=== PATIENT | male | born 1980 | race Two or more races ===

== ENCOUNTER 2022-06-27 11:42 | Emergency (ER) | payer BC ==
[~2022-06-27] VITALS: Ht 188 cm; Wt 118.0 kg
[2022-06-27] MEDS ORDERED: hydrALAZINE HCL 20 MG/ML VL IV ONE ×3 (12:30→14:00)
[2022-06-27 14:02] LABS: Potassium 3.7 mmol/L (3.5-5.1)
[2022-06-27 14:09] LABS: Albumin 4.4 g/dL (3.4-5.0); Bilirubin, Total 0.7 mg/dL (0.2-1.0); Calcium 8.9 mg/dL (8.5-10.1); Total Protein 8.1 g/dL (6.4-8.2)
[2022-06-27 14:30] LABS: Basophils # (auto) 0 10 ^3/uL (0-0.2); Basophils % (auto) 0.6 % (0.0-2.0); Eosinophils # (auto) 0.2 10 ^3/uL (0-0.8); Eosinophils % (auto) 1.8 % (0.0-7.0); Lymphocytes # (auto) 2.4 10 ^3/uL (0.4-5.4); Lymphocytes % (auto) 27.5 % (10.0-50.0); Mean Corpuscular Hemoglobin 30.3 pg (28.0-32.0); Mean Corpuscular Hgb Conc. 36.4 g/dL (32.0-36.0); Mean Corpuscular Volume 83.2 fL (80.0-100.0); Monocytes # (auto) 0.4 10 ^3/uL (0-1.3); Monocytes % (auto) 4.9 % (0.0-12.0); Neutrophils # (auto) 5.6 10 ^3/uL (1.6-8.6); Neutrophils % (auto) 65.2 % (37.0-80.0); Nucleated Red Blood Cells % 0.3 %; Red Blood Cells 5.29 10^6/uL (4.5-5.90); Red Cell Distribution Width 13.6 % (11.8-14.3); White Blood Cell 8.6 10^3/uL (4.4-10.8)
[2022-06-27] MEDS ORDERED: cloNIDine HCL 0.1 MG TAB PO ONE (16:45)
[2022-06-27] MEDS ORDERED: AMLO-496 PO (17:09)
[2022-06-27 17:18] VITALS: BP 188/129
== END 2022-06-27 17:23 | disposition home or self-care (01) ==
LOC: ER 11:42
DX: T59.91XA Toxic effect of unspecified gases, fumes and vapors, accidental (unintentional), initial encounter (principal); R06.02 Shortness of breath; I16.1 Hypertensive emergency; I10 Essential (primary) hypertension; Y92.89 Other specified places as the place of occurrence of the external cause
CPT/HCPCS: 36415; 36600; 71045; 80053; 82805; 84484; 85025; 96374; 99285; J0360

== ENCOUNTER → 2023-07-10 | Outpatient (CLI) | payer BC ==
[~2023-07-10] MED LIST: AMLO1TAB23 PO
[2023-07-10 11:53] LABS: Basophils # (auto) 0.1 10 ^3/uL (0-0.2); Basophils % (auto) 0.7 % (0.0-2.0); Eosinophils # (auto) 0.2 10 ^3/uL (0-0.8); Eosinophils % (auto) 2.3 % (0.0-7.0); Hematocrit 45.1 % (41.0-53.0); Hemoglobin 15.2 g/dL (13.5-17.5); Lymphocytes # (auto) 2.7 10 ^3/uL (0.4-5.4); Lymphocytes % (auto) 30.5 % (10.0-50.0); Mean Corpuscular Hemoglobin 28.4 pg (28.0-32.0); Mean Corpuscular Hgb Conc. 33.8 g/dL (32.0-36.0); Mean Corpuscular Volume 84.1 fL (80.0-100.0); Monocytes # (auto) 0.4 10 ^3/uL (0-1.3); Monocytes % (auto) 4.6 % (0.0-12.0); Neutrophils # (auto) 5.4 10 ^3/uL (1.6-8.6); Neutrophils % (auto) 61.9 % (37.0-80.0); Nucleated Red Blood Cells % 0.2 %; Red Blood Cells 5.37 10^6/uL (4.5-5.90); Red Cell Distribution Width 14.1 % (11.8-14.3); White Blood Cell 8.8 10^3/uL (4.4-10.8)
[2023-07-10 12:05] LABS: Urine Bacteria FEW /hpf (None Seen); Urine Blood Negative /uL (Negative); Urine Clarity Clear (Clear); Urine Color Straw (Yellow); Urine Protein, UAD Negative (Negative); Urine Specific Gravity 1.012 (1.001-1.035); Urine Urobilinogen Normal (Negative); Urine WBC 1 /hpf (0 - 3)
[2023-07-10 12:41] LABS: Alanine Aminotransferase 47 U/L (7-40); Albumin 4.6 g/dL (3.2-4.8); Alkaline Phosphatase 73 U/L (46-116); Anion Gap 5 (5-15); Aspartate Aminotransferase 30 U/L (13-40); Bilirubin, Total 0.7 mg/dL (0.2-1.0); Blood Urea Nitrogen 12 mg/dL (9-23); Calcium 9.4 mg/dL (8.5-10.1); Carbon Dioxide 26 mmol/L (20-30); Chloride 107 mmol/L (98-107); Cholesterol 148 mg/dL (< 200); Glucose 95 mg/dL (74-106); HDL Cholesterol 39 mg/dL (40-59); LDL Cholesterol 97 mg/dL (< 100); Potassium 4.5 mmol/L (3.5-5.1); Sodium 138 mmol/L (136-145); Total Protein 7.6 g/dL (5.7-8.2); Triglycerides 103 mg/dL (< 150)
== END | disposition home or self-care (01) ==
LOC: LAB 11:28
PROVIDERS: ATTEND Nurse Practitioner
DX: I10 Essential (primary) hypertension (principal); E78.5 Hyperlipidemia, unspecified
CPT/HCPCS: 36415; 80053; 80061; 81001; 83036; 84443; 85025

== ENCOUNTER 2024-12-10 09:32 | Inpatient (IN) | payer BC ==
[2024-12-10] VITALS (10 sets, daily range): BP systolic 110–141; BP diastolic 73–85; PULSE 75–86; RESP 18–29; TEMP 98.6; O2SAT 91–98
[~2024-12-10] VITALS: Ht 188 cm; Wt 127.0 kg
[2024-12-10] MEDS: LABETALOL HCL 20 MG/4 ML VL IV ONE ×3 (09:59→11:44)
--- NOTE | 2024-12-10 10:04 | ED.PDOC ---
History of Present Illness HPI Comments HPI: This is a 44 year old male presenting to the ED with chief complaint of HTN. Patient reports that while at work today, he had his blood pressure checked out of curiosity, but was noted to have a BP of 218/129. Patient relays that his has history of HTN and used to be on amlodipine, but has not taken it for the last 6 months. Patient denies any symptoms at this time. Initial Vitals BP: 218/129 HR: 83 RR: 18 O2: 97% Temp: 98.3F Past Medical History: HTN Past Surgical History: None Social History: Denies ETOH, smoking, and drug use. Medications: Amlodipine, last used 6 months ago Allergies: NKDA HPI: Poor Historian. REVIEW OF SYSTEMS: CONSTITUTIONAL: Denies acute: fever, diaphoresis, chills, generalized weakness. HEAD: Denies acute: headache, photophobia Eyes: Denies acute: Double vision, vision loss, eye pain, eye discharge. EARS: Denies acute: tinnitus, hearing loss, ear discharge, ear pain, THROAT: Denies acute: sore throat, swelling, difficulty swallowing , pain with swallowing, change in voice. NECK: Denies acute: neck pain, neck swelling, stiff neck. HEART: Denies acute : chest pain, palpitations, LUNGS: Denies acute: SOB, wheezing, cough, hemoptysis ABDOMEN: Denies acute: abdominal pain, Nausea, Vomiting, diarrhea, melena , hematemesis, hematochezia SKIN: Denies acute: rash, redness, lesions, itchiness. EXTREMITIES: Denies acute: calf pain, numbness, tingling, weakness, denies pain in extremity. Denies acute: Low back pain. Neuro: Denies acute: focal neurological deficit, motor or sensory focal neurological deficit, tremors, seizure like activity, confusion, dizziness, change in mental status, loss of bowel or bladder function, cauda equina like symptoms. : Denies acute: dysuria, hematuria, flank pain, increase in urinary frequency. PSYCH: Denies acute: hallucination, suicidal ideation, homicidal ideation. PHYSICAL EXAM: General: ----no----acute distress, awake and alert. Head: normocephalic, atraumatic. Neck: supple, trachea is midline, no swelling. Throat: Normal phonation. Eyes:, no erythema, no purulent discharge, no proptosis, no icterus. Heart: regular rate, regular rhythm, no significant murmur appreciated. Lungs: no apparent respiratory distress, Able to speak in full sentences. No wheezing, no rhonchi, no crackles. No stridors Clear to auscultation bilaterally. Abdomen: non tender to palpation, non distended, soft, no guarding, no rebound, + bowel sounds. Neuro: Awake, Alert, oriented to name, self, situation, follows commands GCS=15. Speech is normal. Skin: no petechia, no purpura, no cyanosis, non-pale, not jaundice. Lower extremities: --no - Pitting edema no deformity, no focal swelling, no calf TTP. Makes eye contact. moves all four extremities. Face: no apparent facial droop. ED COURSE: DISCLAIMER: This medical document was created using an electronic medical record system with voice recognition software and computerized dictation system. Although this document has been carefully reviewed, there might still be some phonetic and typographical errors. Occasional wrong-word or "sound-alike" substitutions may have occurred due to the inherent limitations of voice recognition software. These areas are purely typographical due to imperfections of the software programs and do not reflect any compromise in the patient's medical care. Please read the chart carefully and recognize, using context, where these substitutions have occurred. Chief Complaint: High Blood Pressure Time Seen by MD: 10:02 Primary Care Provider: MACEYIES Reviewed Notes: Medications, Allergies Allergies: Coded Allergies: NO KNOWN ALLERGIES (Unverified , 06/27/22) Home Meds Active Scripts Amlodipine Besylate (Amlodipine Besylate) 10 Mg Tab, 1 TAB PO DAILY for 30 Days, #30 TAB 5 Refills Prov:CONCHITA HERNANDEZ 06/27/22 Information Source: Patient Mode of Arrival: Ambulatory Was a procedure done? Was a procedure done?: No X-Ray, Labs, Meds, VS Vital Signs Date Time Temp Pulse Resp B/P (MAP) Pulse Ox O2 Delivery O2 Flow Rate FiO2 12/10/24 10:52 79 195/119 12/10/24 10:51 79 195/116 12/10/24 10:00 84 18 204/130 (154) 92 12/10/24 10:00 84 18 92 Room Air* 0 21 12/10/24 09:59 82 213/130 12/10/24 09:33 98.3 83 18 218/129 97 98.3 Lab Test 12/10/24 10:02 Range/Units White Blood Count 8.1 4.4-10.8 10^3/uL Red Blood Count 5.05 4.5-5.90 10^6/uL Hemoglobin 15.0 13.5-17.5 g/dL Hematocrit 42.0 41.0-53.0 % Mean Corpuscular Volume 83.1 80.0-100.0 fL Mean Corpuscular Hemoglobin 29.7 28.0-32.0 pg Mean Corpuscular Hemoglobin Concent 35.7 32.0-36.0 g/dL Red Cell Distribution Width 13.9 11.8-14.3 % Platelet Count 253 140-450 10^3/uL Mean Platelet Volume 8.8 6.9-10.8 fL Neutrophils (%) (Auto) 62.7 37.0-80.0 % Lymphocytes (%) (Auto) 27.4 10.0-50.0 % Monocytes (%) (Auto) 6.2 0.0-12.0 % Eosinophils (%) (Auto) 3.1 0.0-7.0 % Basophils (%) (Auto) 0.6 0.0-2.0 % Neutrophils # (Auto) 5.1 1.6-8.6 10 ^3/uL Lymphocytes # (Auto) 2.2 0.4-5.4 10 ^3/uL Monocytes # (Auto) 0.5 0-1.3 10 ^3/uL Eosinophils # (Auto) 0.3 0-0.8 10 ^3/uL Basophils # (Auto) 0 0-0.2 10 ^3/uL Nucleated Red Blood Cells 0.1 % Sodium Level 140 136-145 mmol/L Potassium Level 3.6 3.5-5.1 mmol/L Chloride Level 104 98-107 mmol/L Carbon Dioxide Level 25 20-31 mmol/L Anion Gap 11 5-15 Blood Urea Nitrogen 12 9-23 mg/dL Creatinine 1.43 H 0.700-1.30 mg/dL Glomerular Filtration Rate Calc 61 >90 mL/min BUN/Creatinine Ratio 8.4 L 10.0-20.0 Serum Glucose 98 74-106 mg/dL Lactic Acid Level 1.2 0.4-2.0 mmol/L Calcium Level 9.0 8.7-10.4 mg/dL Total Bilirubin 0.8 0.2-1.0 mg/dL Aspartate Amino Transferase (AST) 32 13-40 U/L Alanine Aminotransferase (ALT) 61 H 7-40 U/L Alkaline Phosphatase 75 46-116 U/L Troponin I High Sensitivity 7 </=54 ng/L Total Protein 7.4 5.7-8.2 g/dL Albumin 4.6 3.2-4.8 g/dL Current Medications Medications (Trade) Dose Ordered Sig/Bobbi Route Start Time Stop Time Status Last Admin Labetalol HCl (Labetalol HCl) 10 mg ONCE ONCE IV 12/10/24 10:00 12/10/24 10:01 DC 12/10/24 09:59 Labetalol HCl (Labetalol HCl) 10 mg ONCE ONCE IV 12/10/24 10:30 12/10/24 10:31 DC 12/10/24 10:52 [place] [id number] Ph: [phone] DIAGNOSTIC IMAGING Diagnostic Imaging Report : [id number] Signed PATIENT: EVA FRAGA ACCT: [id number] UNIT: [id number] : 1980 LOC: ER ROOM / BED: / AGE / SEX: 44 / M ADM STATUS: REG ER SERVICE [id number] ORDERING PHYSICIAN: MARY ANGELES DO PROCEDURE(s): HWOCT - HEAD WITHOUT CONTRAST REASON: HTN ORDER NUMBER(s): [id number], ACCESSION NUMBER(s): [id number] EXAM: CT HEAD WITHOUT CONTRAST INDICATION: HTN TECHNIQUE: CT of the head without intravenous contrast. Coronal and sagittal reformatted images are submitted. Radiation Dose : 1. Head: CT Dose: CTDI volume is 67.79 mGy. Dose-length product is 1181.4 mGy*cm The dose indicators for CT are the volume Computed Tomography (CT) Dose Index (CTDIvol) and the Dose Length Product (DLP), and are measured in units of mGy and mGy-cm, respectively. These indicators are not patient dose, but values generated from the CT scanner acquisition factors. The report includes radiation exposure data for exposures received during this examination. All CT scans at this medical facility are performed using dose modulation techniques as appropriate to a performed exam including the following: Automated exposure control was utilized; adjustment of the MA and/or KV according to patient size; and use of iterative reconstruction technique. COMPARISON: None FINDINGS: There is no evidence of acute intracranial hemorrhage, extra-axial collection, mass effect, midline shift, herniation or hydrocephalus. The ventricles, sulci and cisterns are age appropriate. The looney-white differentiation is intact. The visualized paranasal sinuses and mastoid air cells are clear. No depressed calvarial fracture. The surrounding soft tissues are unremarkable. IMPRESSION: 1. No evidence of acute intracranial abnormality. ATED BY: SRAVANI HERRERA MD DICTATED DATE/TIME: 12/10/24 1033 SIGNED BY: SRAVANI HERRERA MD SIGNED DATE/TIME: 12/10/24 1033 CC: [place] [id number] Ph: [phone] DIAGNOSTIC IMAGING Diagnostic Imaging Report : [id number] Signed PATIENT: EVA FRAGA ACCT: [id number] UNIT: [id number] : 1980 LOC: ER ROOM / BED: / AGE / SEX: 44 / M ADM STATUS: REG ER SERVICE [id number] ORDERING PHYSICIAN: MARY ANGELES DO PROCEDURE(s): CXRP - CHEST PORTABLE REASON: HTN ORDER NUMBER(s): [id number], ACCESSION NUMBER(s): [id number] CHEST RADIOGRAPH Indication: HTN Technique: Single frontal view of the chest was obtained COMPARISON: XY CHEST PORTABLE on DOS: 06/27/22 FINDINGS: Lines and Tubes: None Lungs: Clear Pleura: No effusion. No pneumothorax. Cardiomediastinal contours: Unremarkable Bones: Unremarkable IMPRESSION: No acute disease. ATED BY: COLT MARLEY MD DICTATED DATE/TIME: 12/10/24 1014 SIGNED BY: COLT MARLEY MD SIGNED DATE/TIME: 12/10/24 1014 CC: Time of 1ST Reevaluation: 11:02 Reevaluation 1ST: Improved Patient Education/Counseling: Diagnosis, Treatment Family Education/Counseling: No Family Present Departure 1 Departure Time of Disposition: 10:21 Impression: Primary Impression: Hypertensive urgency Critical Care Note Critical Care Time?: No I personally scribed for MARY ANGELES DO ([email or web address]) on 12/10/24 at 10:04. Electronically submitted by Claus Diego ([email or web address]). I personally scribed for MARY ANGELES DO ([email or web address]) on 12/10/24 at 11:23. Electronically submitted by Claus Diego ([email or web address]). MARY ANGELES DO Dec 10, 2024 10:04
--- NOTE | 2024-12-10 10:16 | DVH ---
CHEST RADIOGRAPH Indication: HTN Technique: Single frontal view of the chest was obtained COMPARISON: XY CHEST PORTABLE on DOS: 06/27/22 FINDINGS: Lines and Tubes: None Lungs: Clear Pleura: No effusion. No pneumothorax. Cardiomediastinal contours: Unremarkable Bones: Unremarkable IMPRESSION: No acute disease.
[2024-12-10 10:29] LABS: Hematocrit 42.0 % (41.0-53.0); Hemoglobin 15.0 g/dL (13.5-17.5); Mean Corpuscular Hemoglobin 29.7 pg (28.0-32.0); Mean Corpuscular Volume 83.1 fL (80.0-100.0); Nucleated Red Blood Cells % 0.1 %
--- NOTE | 2024-12-10 10:35 | DVH ---
EXAM: CT HEAD WITHOUT CONTRAST INDICATION: HTN TECHNIQUE: CT of the head without intravenous contrast. Coronal and sagittal reformatted images are s ubmitted. Radiation Dose : 1. Head: CT Dose: CTDI volume is 67.79 mGy. Dose-length product is 1181.4 mGy*cm The dose indicators for CT are the volume Computed Tomography (CT) Dose Index (CTDIvol) and the Dose Length Product (DLP), and are measured in units of mGy and mGy-cm, respectively. These indicators are not patient dose, but values generated from the CT scanner acquisition factors. The report includes radiation exposure data for exposures received during this examination. All CT scans at this medical facility are performed using dose modulation techniques as appropriate to a performed exam including the following: Automated exposure control was utilized; adjustment of the MA and/or KV according to patient size; and use of iterative reconstruction technique. COMPARISON: None FINDINGS: There is no evidence of acute intracranial hemorrhage, extra-axial collection, mass effect, midline s hift, herniation or hydrocephalus. The ventricles, sulci and cisterns are age appropriate. The looney-white differentiation is intact. The visualized paranasal sinuses and mastoid air cells are clear. No depressed calvarial fracture. The surrounding soft tissues are unremarkable. IMPRESSION: 1. No evidence of acute intracranial abnormality.
[2024-12-10 10:48] LABS: Alkaline Phosphatase 75 U/L (46-116); Anion Gap 11 (5-15); BUN/Creatinine Ratio 8.4 (10.0-20.0); Blood Urea Nitrogen 12 mg/dL (9-23); Calcium 9.0 mg/dL (8.7-10.4); Carbon Dioxide 25 mmol/L (20-31); Chloride 104 mmol/L (98-107); Glucose 98 mg/dL (74-106); Potassium 3.6 mmol/L (3.5-5.1); Sodium 140 mmol/L (136-145); Total Protein 7.4 g/dL (5.7-8.2)
[2024-12-10 10:49] LABS: Albumin 4.6 g/dL (3.2-4.8); Bilirubin, Total 0.8 mg/dL (0.2-1.0)
[2024-12-10 10:51] LABS: Alanine Aminotransferase 61 U/L (7-40)
[2024-12-10] MEDS: NICARDIPINE HCL IN SODIUM CHLO 200 ML IV SCH (13:24)
[2024-12-10] MEDS ORDERED: ONDANSETRON HCL 4 MG/2 ML VIAL IV PRN (15:30)
[2024-12-10] MEDS ORDERED: NITROGLYCERIN 0.4 MG SL TAB SL PRN (15:30)
[2024-12-10] MEDS ORDERED: MORPHINE SULFATE INJ 2 MG/ml SYRG IV PRN (15:30)
--- NOTE | 2024-12-10 15:32 | DVHHP2 ---
History of Present Illness Reason for Visit: elevated bp History of Present Illness 44-year-old male with a past medical history of hypertension and no surgical history presents after noting markedly elevated blood pressure at work. Patient reports being out of his antihypertensive medication (Amlodipine 10 mg daily) for over six months. While at work, he had his blood pressure checked out of curiosity and found it to be 218/129 prompting ED evaluation. He denies headache, dizziness, vision changes, chest pain, shortness of breath, weakness, numbness, or focal deficits. In the ED, a nicardipine drip was initiated after a dose of labetalol failed to improve BP. Labs notable for creatinine 1.43 lactate 1.2 ; trop negative CT head and chest imaging were negative for acute findings. will admit to [facility] for bp management Past Medical History Hypertension Past Surgical History Denies surgical history Family History Reviewed, non-contributory to the management of this case. Past Social History The patient lives at home, denies smoking, alcohol or illicit drugs abuse. Review of Systems Constitutional: No: Fever, Chills, Sweats, Weakness, Malaise, Other Eyes: No: Pain, Vision change, Conjunctivae inflammation, Eyelid inflammation, Other, Redness ENT: No: Ear pain, Ear discharge, Nose pain, Nose discharge, Nose congestion, Mouth pain, Mouth swelling, Throat pain, Throat swelling, Other Respiratory: No: Cough, Dry, Shortness of breath, SOB with excertion, Wheezing, Hemoptysis, Pleuritic Pain, Sputum, Wheezing, Other Cardiovascular: No: Chest Pain, Palpitations, Orthopnea, Paroxysmal Noc. Dyspnea, Edema, Lt Headedness, Other Gastrointestinal: No: Nausea, Vomiting, Abdominal Pain, Diarrhea, Constipation, Melena, Hematochezia, Other Genitourinary: No Dysuria, No Frequency, No Incontinence, No Hematuria, No Retention, No Other Musculoskeletal: No: other, neck pain, shoulder pain, arm pain, back pain, hand pain, leg pain, foot pain Skin: No: Rash, Lesions, Jaundice, Bruising, Other Neurological: No: Weakness, Numbness, Incoordination, Change in speech, Confusion, Seizures, Other Allergies: Coded Allergies: NO KNOWN ALLERGIES (Unverified , 06/27/22) Medications Current Medications Medications Dose Ordered Sig/Bobbi Route Start Time Stop Time Status Last Admin Dose Admin Nicardipine/ Sodium Chloride 200 ml @ 50 mls/hr Q4H IV 12/10/24 13:15 12/10/24 13:24 50 MLS/HR Exam Vital Signs Vital Signs Date Time Temp Pulse Resp B/P (MAP) Pulse Ox O2 Delivery O2 Flow Rate FiO2 12/10/24 14:30 159/98 12/10/24 14:15 89 26 96 12/10/24 12:00 98.1 98.1 12/10/24 10:00 Room Air* 0 21 General Appearance: Alert, Oriented X3, Cooperative, No acute distress HEENT: Atraumatic, PERRLA, EOMI, Mucous membr. moist/pink Respiratory: Clear to auscultation, Normal air movement Cardiovascular: Regular rate, Normal S1, Normal S2, No murmurs Abdominal: Normal bowel sounds, Soft, No tenderness, No hepatospenomegaly, No masses Extremities: No clubbing, No cyanosis, No edema, Normal pulses, No tenderness/swelling Skin: No rashes, No breakdown, No significant lesion Neuro: Normal gait, Normal speech, Strength at 5/5 X4 ext, Normal tone, Sensation intact, Cranial nerves 3-12 NL Psych/Mental Status: Mental status NL, Mood NL Labs/Xrays CT scan of the brain unremarkable Chest x-ray unremarkable I reviewed labs, imaging CT scan abdomen pelvis, EKG and all diagnostic studies on this patient from ED records and the medical chart Labs Test 12/10/24 13:38 12/10/24 10:02 Range/Units Troponin I High Sensitivity 5 </=54 ng/L White Blood Count 8.1 4.4-10.8 10^3/uL Red Blood Count 5.05 4.5-5.90 10^6/uL Hemoglobin 15.0 13.5-17.5 g/dL Hematocrit 42.0 41.0-53.0 % Mean Corpuscular Volume 83.1 80.0-100.0 fL Mean Corpuscular Hemoglobin 29.7 28.0-32.0 pg Mean Corpuscular Hemoglobin Concent 35.7 32.0-36.0 g/dL Red Cell Distribution Width 13.9 11.8-14.3 % Platelet Count 253 140-450 10^3/uL Mean Platelet Volume 8.8 6.9-10.8 fL Neutrophils (%) (Auto) 62.7 37.0-80.0 % Lymphocytes (%) (Auto) 27.4 10.0-50.0 % Monocytes (%) (Auto) 6.2 0.0-12.0 % Eosinophils (%) (Auto) 3.1 0.0-7.0 % Basophils (%) (Auto) 0.6 0.0-2.0 % Neutrophils # (Auto) 5.1 1.6-8.6 10 ^3/uL Lymphocytes # (Auto) 2.2 0.4-5.4 10 ^3/uL Monocytes # (Auto) 0.5 0-1.3 10 ^3/uL Eosinophils # (Auto) 0.3 0-0.8 10 ^3/uL Basophils # (Auto) 0 0-0.2 10 ^3/uL Nucleated Red Blood Cells 0.1 % Sodium Level 140 136-145 mmol/L Potassium Level 3.6 3.5-5.1 mmol/L Chloride Level 104 98-107 mmol/L Carbon Dioxide Level 25 20-31 mmol/L Anion Gap 11 5-15 Blood Urea Nitrogen 12 9-23 mg/dL Creatinine 1.43 H 0.700-1.30 mg/dL Glomerular Filtration Rate Calc 61 >90 mL/min BUN/Creatinine Ratio 8.4 L 10.0-20.0 Serum Glucose 98 74-106 mg/dL Lactic Acid Level 1.2 0.4-2.0 mmol/L Calcium Level 9.0 8.7-10.4 mg/dL Total Bilirubin 0.8 0.2-1.0 mg/dL Aspartate Amino Transferase (AST) 32 13-40 U/L Alanine Aminotransferase (ALT) 61 H 7-40 U/L Alkaline Phosphatase 75 46-116 U/L Total Protein 7.4 5.7-8.2 g/dL Albumin 4.6 3.2-4.8 g/dL SEPSIS Sepsis Screen Date sepsis recognized/suspect: Dec 10, 2024 Time Sepsis recognized/suspect: 1000 Recent Procedure: No On Antibiotic Therapy: No Respiratory Rate >20: No Heart Rate >90: No Temp<36 C (96.8 F) or >38.3 C: No SBP <90 or MAP <65 mmHG: No New Acute Mental Status Change: No Is the patient on CPAP, BIPAP,: No Physician Orders Heplock Iv (12/10/24 ) Kidney Puller (12/10/24 ) Urinalysis (12/10/24 09:47) Chest Portable (12/10/24 09:47) Electrocardigram (12/10/24 09:47) Head Without Contrast (12/10/24 09:47) Nicardipine Hcl In Sodium Chlo (Cardene (12/10/24 13:15) Vital Signs Date Time Temp Pulse Resp B/P (MAP) Pulse Ox O2 Delivery O2 Flow Rate FiO2 12/10/24 14:30 159/98 12/10/24 14:15 89 26 175/106 (129) 96 12/10/24 14:11 179/99 12/10/24 14:00 89 25 159/99 (119) 97 12/10/24 13:45 83 24 169/106 (127) 94 12/10/24 13:31 75 22 187/112 (137) 94 12/10/24 13:24 171/107 12/10/24 13:15 75 22 171/107 (128) 94 12/10/24 13:00 72 26 190/133 (152) 95 12/10/24 12:45 74 22 182/150 (161) 94 12/10/24 12:44 73 182/150 12/10/24 12:30 66 19 176/112 (133) 93 12/10/24 12:15 69 21 174/127 (143) 93 12/10/24 12:00 98.1 68 20 174/127 (143) 96 98.1 12/10/24 11:44 74 186/114 12/10/24 11:42 77 202/112 12/10/24 11:15 74 15 195/113 (140) 93 12/10/24 11:08 73 12/10/24 11:00 79 16 189/113 (138) 93 12/10/24 10:52 79 195/119 12/10/24 10:51 79 195/116 12/10/24 10:45 77 20 119/116 (117) 95 12/10/24 10:17 82 19 187/133 (151) 95 12/10/24 10:00 84 18 204/130 (154) 92 12/10/24 10:00 84 18 92 Room Air* 0 21 12/10/24 09:59 82 213/130 12/10/24 09:33 98.3 83 18 218/129 97 98.3 Laboratory Tests Test 12/10/24 10:02 Lactic Acid Level 1.2 mmol/L (0.4-2.0) White Blood Count 8.1 10^3/uL (4.4-10.8) Medications Medications Dose Ordered Sig/Bobbi Route Start Time Stop Time Status Last Admin Dose Admin Labetalol HCl 10 mg ONCE ONCE IV 12/10/24 10:00 12/10/24 10:01 DC 12/10/24 09:59 10 MG Labetalol HCl 10 mg ONCE ONCE IV 12/10/24 10:30 12/10/24 10:31 DC 12/10/24 10:52 10 MG Labetalol HCl 20 mg ONCE ONCE IV 12/10/24 11:30 12/10/24 11:31 DC 12/10/24 11:44 20 MG Nicardipine/ Sodium Chloride 200 ml @ 50 mls/hr Q4H IV 12/10/24 13:15 12/10/24 13:24 50 MLS/HR Assessment/Plan Assessment/Plan 44-year-old male with Hypertensive urgency due to medication noncompliance admitted for BP control and medication re-initiation. acute Hypertensive urgency ct brain negative Continue nicardipine infusion per protocol, titrate to target BP. Restart amlodipine 10 mg PO daily once stable. Monitor BP every hour initially, then space as stable. 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 Acute kidney injury vs. CKD stage II Trend renal function. Avoid nephrotoxic agents. ordered urine sodium and crea to check fena CHRONIC PROBLEM LIST: Hypertension (I10) Possible CKD stage II FEN/PPx: Fluids:hl Electrolytes: Monitor and replete as necessary. Nutrition: Cardiac diet. DVT prophylaxis: SCDs until ambulatory and BP controlled. GI prophylaxis: Not indicated at this time. Disposition: Admit to step-down unit for IV antihypertensive titration and monitoring. Discharge once BP stable on oral regimen and patient educated on medication adherence. Plan discussed with: Patient Date of Service: Dec 10, 2024 Billing Provider: ED LAWRENCE DNP Common Visit Codes: [id number] INP/OBS CARE (HIGH), [id number] CARE 30- 74 MIN (Total critical care time: Approximately 45 minutes This critical care time included obtaining a history; examining the patient; pulse oximetry; orde ring and review of studies; arranging urgent treatment with development of a management plan; evaluation of patient's response to treatment; frequent reassessment; and, discussions with other providers.) ED LAWRENCE DNP Dec 10, 2024 15:32
[2024-12-10 16:43] LABS: Urine Protein, UAD Negative (Negative)
[2024-12-10] MEDS: ACETAMINOPHEN 325 MG TAB PO PRN (16:43)
--- NOTE | 2024-12-10 19:10 | ECG ---
[facility] Test Date: 2024-12-10 Test Time: 11:08:32 Pat Name: EVA FRAGA Department: ED Room: [address] [place] [address] Gender: M Md Do Resident Urgent Care: [facility] : 1980 Requested By: MARY ANGELES Order Number: [id number] Reading MD: Erick Underwood Measurements Intervals [place] Rate: 73 P: 41 SD: 177 QRS: -37 QRSD: 103 T: 203 QT: 393 QTc: 433 Interpretive Statements Sinus rhythm Consider left atrial enlargement Left axis deviation Borderline T abnormalities, diffuse leads Electronically Signed On 12-13-2024 22:49:16 PDT by Erick Underwood Please click the below link to view image of tracing.
[2024-12-11] VITALS (74 sets, daily range): BP systolic 106–180; BP diastolic 68–109; PULSE 70–95; RESP 8–32; TEMP 98–98.7; O2SAT 91–99
[2024-12-11 07:17] LABS: Hematocrit 43.9 % (41.0-53.0); Hemoglobin 16.0 g/dL (13.5-17.5); Mean Corpuscular Hemoglobin 30.2 pg (28.0-32.0); Mean Corpuscular Volume 83.0 fL (80.0-100.0); Nucleated Red Blood Cells % 0.1 %
[2024-12-11 07:33] LABS: Albumin 4.5 g/dL (3.2-4.8); Alkaline Phosphatase 77 U/L (46-116); Anion Gap 11 (5-15); BUN/Creatinine Ratio 11.9 (10.0-20.0); Bilirubin, Total 1.0 mg/dL (0.2-1.0); Blood Urea Nitrogen 15 mg/dL (9-23); Calcium 9.2 mg/dL (8.7-10.4); Carbon Dioxide 25 mmol/L (20-31); Chloride 105 mmol/L (98-107); Glucose 101 mg/dL (74-106); Potassium 4.3 mmol/L (3.5-5.1); Sodium 141 mmol/L (136-145); Total Protein 7.3 g/dL (5.7-8.2)
[2024-12-11 07:34] LABS: Alanine Aminotransferase 63 U/L (7-40)
--- NOTE | 2024-12-11 11:57 | DVHPN2 ---
Reviewed: Care Plan, H&P, Labs, Medications, Previous Orders, Radiology Changes from previous H/P or p: No Changes Eyes: No Pain, No Vision change, No Conjunctivae inflammation, No Eyelid inflammation, No Other, No Redness ENT: No Ear pain, No Ear discharge, No Nose pain, No Nose discharge, No Nose congestion, No Mouth pain, No Mouth swelling, No Throat pain, No Throat swelling, No Other Cardiovascular: No Chest Pain, No Palpitations, No Orthopnea, No Paroxysmal Noc. Dyspnea, No Edema, No Lt Headedness, No Other Respiratory: No Cough, No Dry, No Shortness of breath, No SOB with excertion, No Wheezing, No Hemoptysis, No Pleuritic Pain, No Sputum, No Other Gastrointestinal: No Nausea, No Vomiting, No Abdominal Pain, No Diarrhea, No Constipation, No Melena, No Hematochezia, No Other Genitourinary: No Dysuria, No Frequency, No Incontinence, No Hematuria, No Retention, No Other Musculoskeletal: No other, No neck pain, No shoulder pain, No arm pain, No back pain, No hand pain, No leg pain, No foot pain Skin: No Rash, No Lesions, No Jaundice, No Bruising, No Other Objective Vitals Vital Signs Date Time Temp Pulse Resp B/P (MAP) Pulse Ox O2 Delivery O2 Flow Rate FiO2 12/11/24 10:15 85 27 152/93 (112) 96 12/11/24 08:00 98.7 98.7 12/11/24 08:00 Room Air* 0 21 Intake/Output Intake and Output 12/11/24 07:00 Intake Total 700 ml Output Total 1500 ml Balance -800 ml Intake Oral 250 ml IV Total 450 ml Output Urine Total 1500 ml Stool Total 0 ml Medications Current Medications Medications Dose Ordered Sig/Bobbi Route Start Time Stop Time Status Last Admin Dose Admin Nicardipine/ Sodium Chloride 200 ml @ 50 mls/hr Q4H IV 12/10/24 13:15 12/11/24 10:11 50 MLS/HR Ondansetron HCl 4 mg Q4HP PRN IV 12/10/24 15:30 Docusate Sodium 100 mg BIDPRN PRN PO 12/10/24 15:30 Morphine Sulfate 2 mg Q4HPRN PRN IV 12/10/24 15:30 Nitroglycerin 0.4 mg Q5MINP PRN SL 12/10/24 15:30 Amlodipine Besylate 10 mg DAILY PO 12/11/24 10:00 12/11/24 10:11 10 MG Acetaminophen 650 mg Q6HP PRN PO 12/10/24 16:15 12/11/24 10:09 650 MG Laboratory Results Laboratory Tests 12/11/24 06:54 Chemistry Test 12/11/24 06:54 Albumin 4.5 g/dL (3.2-4.8) Calcium Level 9.2 mg/dL (8.7-10.4) Total Protein 7.3 g/dL (5.7-8.2) LFT Test 12/11/24 06:54 Alanine Aminotransferase (ALT) 63 U/L (7-40) H Alkaline Phosphatase 77 U/L (46-116) Aspartate Amino Transferase (AST) 34 U/L (13-40) Total Bilirubin 1.0 mg/dL (0.2-1.0) Urinalysis Test 12/10/24 15:02 Urine Color Light-yellow (Yellow) Urine Clarity Clear (Clear) Urine pH 6.0 (5.0-9.0) Urine Specific [place] 1.012 (1.001-1.035) Urine Protein Negative (Negative) Urine Ketones Negative (Negative) Urine Blood Negative /uL (Negative) Urine Nitrite Negative (Negative) Urine Bilirubin Negative (Negative) Urine Urobilinogen Normal mg/dL (Negative) Urine Leukocyte Esterase Negative /uL (Negative) Urine RBC <1 /hpf (0 - 3) Urine Microscopic WBC /HPF (0-3) Urine Squamous Epithelial Cells None seen /hpf (<5) Urine Bacteria None seen /hpf (None Seen) Urine Creatinine 66.86 mg/dL (30.0-125.0) Urine Sodium 148 mmol/L (40-220) Urine Glucose Normal mg/dL (Normal) Labs and/or images reviewed: Labs reviewed by me, Image(s) reviewed by me Assessment/Plan Assessment/Plan Acute Hypertensive urgency BP 218/129 at work, patient takes amlodipine 10 mg p.o. daily, ran out of medication, nicardipine infusion per protocol ct brain negative Restart amlodipine 10 mg PO daily once stable. 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 LAURO stage III Acute kidney injury vs. CKD stage II Possible DC tomorrow Plan discussed with: Patient Date of Service: Dec 11, 2024 Billing Provider: THIERNO HUA MD Common Visit Codes: [id number] INP/OBS CARE(HIGH) THIERNO HUA MD Dec 11, 2024 11:57
[2024-12-11] MEDS: DOCUSATE SOD 100 MG CAP PO PRN (19:20)
[2024-12-12] VITALS (29 sets, daily range): BP systolic 107–141; BP diastolic 63–96; PULSE 61–83; RESP 16–24; TEMP 97.9–99; O2SAT 90–97
[2024-12-12] MEDS ORDERED: AMLO1TAB23 PO (10:54)
--- NOTE | 2024-12-12 10:59 | DVHDS2 ---
Discharge Summary Date of Admission Dec 10, 2024 at 15:25 Date of Discharge: Dec 12, 2024 Admitting Diagnosis Elevated blood pressure Wounds: None Labs/Diagnostic Data: Laboratory Results Test 12/11/24 06:54 12/10/24 15:02 12/10/24 13:38 12/10/24 10:02 White Blood Count 8.6 10^3/uL (4.4-10.8) Red Blood Count 5.29 10^6/uL (4.5-5.90) Hemoglobin 16.0 g/dL (13.5-17.5) Hematocrit 43.9 % (41.0-53.0) Mean Corpuscular Volume 83.0 fL (80.0-100.0) Mean Corpuscular Hemoglobin 30.2 pg (28.0-32.0) Mean Corpuscular Hemoglobin Concent 36.4 g/dL (32.0-36.0) Red Cell Distribution Width 14.0 % (11.8-14.3) Platelet Count 245 10^3/uL (140-450) Mean Platelet Volume 8.5 fL (6.9-10.8) Neutrophils (%) (Auto) 67.5 % (37.0-80.0) Lymphocytes (%) (Auto) 23.7 % (10.0-50.0) Monocytes (%) (Auto) 5.4 % (0.0-12.0) Eosinophils (%) (Auto) 2.9 % (0.0-7.0) Basophils (%) (Auto) 0.5 % (0.0-2.0) Neutrophils # (Auto) 5.8 10 ^3/uL (1.6-8.6) Lymphocytes # (Auto) 2.0 10 ^3/uL (0.4-5.4) Monocytes # (Auto) 0.5 10 ^3/uL (0-1.3) Eosinophils # (Auto) 0.3 10 ^3/uL (0-0.8) Basophils # (Auto) 0 10 ^3/uL (0-0.2) Nucleated Red Blood Cells 0.1 % Sodium Level 141 mmol/L (136-145) Potassium Level 4.3 mmol/L (3.5-5.1) Chloride Level 105 mmol/L (98-107) Carbon Dioxide Level 25 mmol/L (20-31) Anion Gap 11 (5-15) Blood Urea Nitrogen 15 mg/dL (9-23) Creatinine 1.26 mg/dL (0.700-1.30) Glomerular Filtration Rate Calc 71 mL/min (>90) BUN/Creatinine Ratio 11.9 (10.0-20.0) Serum Glucose 101 mg/dL (74-106) Calcium Level 9.2 mg/dL (8.7-10.4) Total Bilirubin 1.0 mg/dL (0.2-1.0) Aspartate Amino Transferase (AST) 34 U/L (13-40) Alanine Aminotransferase (ALT) 63 U/L (7-40) Alkaline Phosphatase 77 U/L (46-116) Total Protein 7.3 g/dL (5.7-8.2) Albumin 4.5 g/dL (3.2-4.8) Urine Color Light-yellow (Yellow) Urine Clarity Clear (Clear) Urine pH 6.0 (5.0-9.0) Urine Specific [place] 1.012 (1.001-1.035) Urine Protein Negative (Negative) Urine Ketones Negative (Negative) Urine Blood Negative /uL (Negative) Urine Nitrite Negative (Negative) Urine Bilirubin Negative (Negative) Urine Urobilinogen Normal mg/dL (Negative) Urine Leukocyte Esterase Negative /uL (Negative) Urine RBC <1 /hpf (0 - 3) Urine Microscopic WBC /HPF (0-3) Urine Squamous Epithelial Cells None seen /hpf (<5) Urine Bacteria None seen /hpf (None Seen) Urine Creatinine 66.86 mg/dL (30.0-125.0) Urine Sodium 148 mmol/L (40-220) Urine Glucose Normal mg/dL (Normal) Troponin I High Sensitivity 5 ng/L (</=54) Lactic Acid Level 1.2 mmol/L (0.4-2.0) Other Laboratory Tests 12/11/24 06:54 Brief Hx & Hospital Course: 44-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 He takes amlodipine 10 mg p.o. daily for blood pressure and ran out of the medication blood pressure time of admission 218/129. Started back on amlodipine. CT brain is negative at the time of discharge blood pressure is normal vital signs are stable. No chest pain or shortness of breaths discharged home. He was advised compliance with the blood pressure medications. Prescription for [facility]ine [facility] Consults/Reason for consult None Operations or Procedures None Condition at Discharge: Fair Final Diagnosis/Problems List Acute Hypertensive urgency BP 218/129 at work, patient takes amlodipine 10 mg p.o. daily, ran out of medication, nicardipine infusion per protocol ct brain negative Restart amlodipine 10 mg PO daily once stable. 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 LAURO stage III Acute kidney injury vs. CKD stage II Discharge Disposition: Home Discharge Instruct/Medications Diet: Cardiac 2g Na,low cholest Activity: Light activity Follow Up/Referral: Take medications as prescribed Follow up with the primary Dr in one week Medications: Amlodipine 10 mg p.o. daily 90 [facility] Scheduled Amlodipine Besylate (Amlodipine Besylate), 1 TAB PO DAILY Amlodipine Besylate (Amlodipine Besylate), 1 TAB PO DAILY 35 (Time taken For discharge summary 35 minutes) Discharge Statement: "Patient was advised to return to the ER or call 911 if any headaches, dizziness, shortness of breath, chest pain, abdominal pain, bleeding, fevers, or worsening of medical condition. Patient was counseled about treatment plan, medications, possible side effects, patientverbalized understanding. All questions were answered to the best of my ability. This discharge took greater then 30 minutes in planning, reviewing documentation, counseling the patient, and discussing with other team members." ASSESSMENT ASSESSMENT Hospital Course Uneventful Assessment Acute Hypertensive urgency BP 218/129 at work, patient takes amlodipine 10 mg p.o. daily, ran out of medication, nicardipine infusion per protocol ct brain negative Restart amlodipine 10 mg PO daily once stable. 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 LAURO stage III Acute kidney injury vs. CKD stage II Date of Service: Dec 12, 2024 Billing Provider: THIERNO HUA MD Common Visit Codes: [id number] DISCH DAY >30min THIERNO HUA MD Dec 12, 2024 10:59
== END 2024-12-12 12:04 | disposition home or self-care (01) | DRG 305 ==
LOC: EEVIPCON 09:32 → ER 09:32 → OVERFLOW 15:25 → DOU 21:00
PROVIDERS: ADMIT Nurse Practitioner Family; ATTEND Nurse Practitioner Family
DX: I16.0 Hypertensive urgency (principal); N17.9 Acute kidney failure, unspecified; N18.2 Chronic kidney disease, stage 2 (mild); I12.9 Hypertensive chronic kidney disease with stage 1 through stage 4 chronic kidney disease, or unspecified chronic kidney disease; Z79.899 Other long term (current) drug therapy; Z91.148 Patient's other noncompliance with medication regimen for other reason
CPT/HCPCS: 36415; 70450; 71045; 80053; 81001; 82570; 83605; 84300; 84484; 85025; 87081; 93005; 96374; 96376; G0378